=== PATIENT | male | born 1950 | race Caucasian/White ===

== ENCOUNTER 2017-05-02 10:02 | Inpatient (IN) | payer MEDICARE, OTHER ==
[~2017-05-02] VITALS: Ht 177.8 cm; Wt 100.1 kg
[2017-05-02 10:20] VITALS: BP 120/56; PULSE 104; RESP 16; TEMP 99.6; O2SAT 98
[2017-05-02 11:08] VITALS: BP 136/60; PULSE 116; RESP 20; O2SAT 97
[2017-05-02] MEDS ORDERED: SODIUM CHLOR 0.9% 1000 ML INJ 1,000 ML IV ONE (11:14)
[2017-05-02] MEDS ORDERED: ONDANSETRON HCL 4 MG/2 ML VIAL IV PUSH ONE (11:15)
[2017-05-02] MEDS ORDERED: LOPERAMIDE HCL 2 MG CAP PO ONE ×2 (11:15→11:30)
--- NOTE | 2017-05-02 11:20 | PD ---
HPI Chief Complaint: GI Complaint Time Seen by Provider: 11:00 Travel History International Travel<30 days: No Contact w/Intl Traveler<30days: No Traveled to known affect area: No History of Present Illness HPI 66-year-old male with history of diabetes, hyperlipidemia, hypertension presents emergency department with concerns of nausea, vomiting and diarrhea for approximately 5 days. States that he went to urgent care this morning and they tested him for the flu which was negative. Advised that he come to the emergency department today for further evaluation. Says that his was sick with very similar symptoms approximately 10 days ago and believes this is the cause of his symptoms now. Says he has had 2-3 loose stools per day. States the stool has had an unusual odor. In addition says that he has had some muscle cramping. Denies fever, chills, chest pain, shortness of breath, abdominal pain. Denies melena, hematochezia, hematemesis. His friend says that patient has been "disoriented", very similar to what his experienced since the onset of his symptoms. 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 Denies recent antibiotic use, patient denies history of heart attacks, congestive heart failure, or chronic pulmonary diseases. PFSH Past Medical History Diabetes: Yes Patient Takes Glucophage: Yes Diminished Hearing: No Hypertension: Yes Past Surgical History Other Surgery: Yes (L and R knee ) Social History Alcohol Use: No Tobacco Use: No Substance Use: No Allergies-Medications (Allergen,Severity, Reaction): Coded Allergies: No Known Allergies (Unverified , 05/02/17) Reported Meds & Prescriptions Reported Meds & Active Scripts Active Reported Terazosin (Terazosin HCl) 5 Mg Cap 5 Mg PO HS Hydrochlorothiazide 25 Mg Tab 25 Mg PO DAILY Lisinopril 20 Mg Tab 20 Mg PO DAILY Amlodipine (Amlodipine Besylate) 10 Mg Tab 10 Mg PO DAILY Glimepiride 4 Mg Tab 4 Mg PO BIDAC Januvia (Sitagliptin Phosphate) 100 Mg Tab 100 Mg PO DAILY Review of Systems Except as stated in HPI: all other systems reviewed are Neg Physical Exam Narrative GENERAL: Well-developed, well-nourished no apparent distress SKIN: Focused skin assessment warm/dry. HEAD: Atraumatic. Normocephalic. EYES: Pupils equal and round. No scleral icterus. No injection or drainage. ENT: No nasal bleeding or discharge. Mucous membranes pink and moist. NECK: Trachea midline. No JVD. No lymphadenopathy CARDIOVASCULAR: Regular rate and rhythm. No murmur appreciated. RESPIRATORY: No accessory muscle use. Clear to auscultation. Breath sounds equal bilaterally. GASTROINTESTINAL: Abdomen soft, non-tender, nondistended. Normoactive bowel sounds MUSCULOSKELETAL: No obvious deformities. No clubbing. No cyanosis. No edema. NEUROLOGICAL: Awake and alert. No obvious cranial nerve deficits. Motor grossly within normal limits. Normal speech. PSYCHIATRIC: Appropriate mood and affect; insight and judgment normal. Data Data Last Documented VS Vital Signs Date Time Temp Pulse Resp B/P (MAP) Pulse Ox O2 Delivery O2 Flow Rate FiO2 05/02/17 11:08 116 20 136/60 (85) 97 Room Air 05/02/17 10:20 99.6 Orders Orders Complete Blood Count With Diff (05/02/17 11:14) Comprehensive Metabolic Panel (05/02/17 11:14) Lipase (05/02/17 11:14) Ondansetron Inj (Zofran Inj) (05/02/17 11:15) Sodium Chlor 0.9% 1000 Ml Inj (Ns 1000 M (05/02/17 11:14) Magnesium (Mg) (05/02/17 11:14) Loperamide (Imodium) (05/02/17 11:15) Influenzae A/B Antigen (05/02/17 11:18) Loperamide (Imodium) (05/02/17 11:30) Diet Heart Healthy (05/02/17 Lunch) Vital Signs (Adult) ADAIR.Q4H (05/02/17 12:49) Complete Blood Count With Diff (05/03/17 06:00) Comprehensive Metabolic Panel (05/03/17 06:00) ^ Other Nursing Orders (05/02/17 12:49) Admit Order (Ed Use Only) (05/02/17 12:50) Labs Laboratory Tests Test 05/02/17 11:15 White Blood Count 18.1 TH/MM3 Red Blood Count 4.09 MIL/MM3 Hemoglobin 13.0 GM/DL Hematocrit 37.2 % Mean Corpuscular Volume 91.0 FL Mean Corpuscular Hemoglobin 31.9 PG Mean Corpuscular Hemoglobin Concent 35.0 % Red Cell Distribution Width 13.8 % Platelet Count 279 TH/MM3 Mean Platelet Volume 7.2 FL Neutrophils (%) (Auto) 85.3 % Lymphocytes (%) (Auto) 3.6 % Monocytes (%) (Auto) 11.0 % Eosinophils (%) (Auto) 0.0 % Basophils (%) (Auto) 0.1 % Neutrophils # (Auto) 15.4 TH/MM3 Lymphocytes # (Auto) 0.7 TH/MM3 Monocytes # (Auto) 2.0 TH/MM3 Eosinophils # (Auto) 0.0 TH/MM3 Basophils # (Auto) 0.0 TH/MM3 CBC Comment DIFF FINAL Differential Comment Blood Urea Nitrogen 26 MG/DL Creatinine 1.16 MG/DL Random Glucose 31 MG/DL Total Protein 7.0 GM/DL Albumin 3.4 GM/DL Calcium Level 7.8 MG/DL Magnesium Level 2.0 MG/DL Alkaline Phosphatase 145 U/L Aspartate Amino Transf (AST/SGOT) 73 U/L Alanine Aminotransferase (ALT/SGPT) 97 U/L Total Bilirubin 0.8 MG/DL Sodium Level 132 MEQ/L Potassium Level 3.9 MEQ/L Chloride Level 101 MEQ/L Carbon Dioxide Level 20.9 MEQ/L Anion Gap 10 MEQ/L Estimat Glomerular Filtration Rate 63 ML/MIN Lipase 1005 U/L MDM Medical Decision Making Medical Screen Exam Complete: Yes Emergency Medical Condition: Yes Differential Diagnosis gastroenteritis, hypoglycemia, medication noncompliance, pancreatitis, influenza , viral syndrome Narrative Course 66-year-old male with history of diabetes, hyperlipidemia, hypertension presents emergency department with concerns of nausea, vomiting and diarrhea for approximately 5 days. States that he went to urgent care this morning and they tested him for the flu which was negative. Advised that he come to the emergency department today for further evaluation. Says that his was sick with very similar symptoms approximately 10 days ago and believes this is the cause of his symptoms now. Says he has had 2-3 loose stools per day. States the stool has had an unusual odor. In addition says that he has had some muscle cramping. Denies fever, chills, chest pain, shortness of breath, abdominal pain. Denies melena, hematochezia, hematemesis. His friend says that patient has been "disoriented", very similar to what his experienced since the onset of his symptoms. 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 Denies recent antibiotic use, patient denies history of heart attacks, congestive heart failure, or chronic pulmonary diseases. Vital signs stable. BGL 37 upon arrival. Recheck after corina quinton 54. Labs and imaging studies ordered. Labs are significant for WBC 18.1, likely secondary to nausea with vomiting and diarrhea. Blood glucose 31 prior to treatment, see the above note. BUN/creatinine 26/1.16 Pt says he took his medications this morning which includes glimepiride. There is a concern for hypoglycemia as a result of the medication. In addition, pt is visiting for bike week and does not have all of his materials for checking blood sugar. There is a concern for persistent hypoglycemia in combination with his gastroenteritis symptoms. @1248 BLG 41 after sandwich, fruit cup, corina quinton, gatorade. Will continue to encourage PO intake. I discussed this with my attending physician who suggested pt stay for observation. I discussed this with the patient and he agrees to stay. Spoke with Dr. Lloyd who accepted this patient for observation. @1511 I walked into the room and his friend was concerned that he has some left- sided weakness for about 45 minutes. Patient states that he is unable to lift his arm and has weakness in the lower left lower extremity. In addition, patient is unable to puff his cheeks or keep his left eye closed tightly. His exam shows that patient has urine on his jeans however, states that this was secondary to him trying to urinate in the urinal and was unsuccessful. Blood glucose 45. Friend says that he has been continually eating and drinking that his blood sugar has remained low. Order D50 for administration and monitoring. Will recheck blood sugar. D50 resolved all symptoms. A call was placed to Dr. Allen regarding this episode. Diagnosis Primary Impression: Gastroenteritis Additional Impressions: Hypoglycemia associated with type 2 diabetes mellitus Side effect of medication Admitting Information Admitting Physician Requests: Observation Referrals: Primary Care Physician Condition: Stable Veronica Schaeffer May 02, 2017 11:20
[2017-05-02 11:32] LABS: AUTOMATED NEUTROPHIL # 15.4 TH/MM3 (1.8-7.7); BASOPHIL % 0.1 % (0.0-2.0); HEMATOCRIT 37.2 % (39.0-51.0); LYMPH % 3.6 % (9.0-44.0); LYMPHOCYTE # 0.7 TH/MM3 (1.0-4.8); MEAN CORPUSCULAR HEMOGLOBIN 31.9 PG (27.0-34.0); MEAN PLATELET VOLUME 7.2 FL (7.0-11.0); NEUT % 85.3 % (16.0-70.0); PLATELET COUNT 279 TH/MM3 (150-450); RED BLOOD COUNT 4.09 MIL/MM3 (4.50-5.90); RED CELL DISTRIBUTION WIDTH 13.8 % (11.6-17.2); WHITE BLOOD COUNT 18.1 TH/MM3 (4.0-11.0)
[2017-05-02] MEDS ORDERED: HYDR25TA5 PO (11:35)
[2017-05-02] MEDS ORDERED: SITA1TAB2 PO (11:35)
[2017-05-02] MEDS ORDERED: AMLO10TA2 PO (11:35)
[2017-05-02] MEDS ORDERED: LISI-515 PO (11:35)
[2017-05-02] MEDS ORDERED: GLIM4TAB PO (11:35)
[2017-05-02] MEDS ORDERED: TERA5CAP3 PO (11:35)
[2017-05-02 12:04] LABS: ALBUMIN 3.4 GM/DL (3.4-5.0); ALKALINE PHOSPHATASE 145 U/L (45-117); ALT (GPT) 97 U/L (12-78); AST (GOT) 73 U/L (15-37); BICARBONATE 20.9 MEQ/L (21.0-32.0); BLOOD UREA NITROGEN 26 MG/DL (7-18); CALCIUM 7.8 MG/DL (8.5-10.1); CHLORIDE 101 MEQ/L (98-107); CREATININE 1.16 MG/DL (0.60-1.30); GLOMERULAR FILTRATION RATE 63 ML/MIN (>89); SODIUM (NA) 132 MEQ/L (136-145); TOTAL BILIRUBIN ADULT 0.8 MG/DL (0.2-1.0)
[2017-05-02 12:10] LABS: GLUCOSE,RANDOM 31 MG/DL (74-106)
--- NOTE | 2017-05-02 12:20 | PD ---
Data Data Last Documented VS Vital Signs Date Time Temp Pulse Resp B/P (MAP) Pulse Ox O2 Delivery O2 Flow Rate FiO2 05/02/17 11:08 116 20 136/60 (85) 97 Room Air 05/02/17 10:20 99.6 Orders Orders Complete Blood Count With Diff (05/02/17 11:14) Comprehensive Metabolic Panel (05/02/17 11:14) Lipase (05/02/17 11:14) Ondansetron Inj (Zofran Inj) (05/02/17 11:15) Sodium Chlor 0.9% 1000 Ml Inj (Ns 1000 M (05/02/17 11:14) Magnesium (Mg) (05/02/17 11:14) Loperamide (Imodium) (05/02/17 11:15) Influenzae A/B Antigen (05/02/17 11:18) Loperamide (Imodium) (05/02/17 11:30) Labs Laboratory Tests Test 05/02/17 11:15 White Blood Count 18.1 TH/MM3 Red Blood Count 4.09 MIL/MM3 Hemoglobin 13.0 GM/DL Hematocrit 37.2 % Mean Corpuscular Volume 91.0 FL Mean Corpuscular Hemoglobin 31.9 PG Mean Corpuscular Hemoglobin Concent 35.0 % Red Cell Distribution Width 13.8 % Platelet Count 279 TH/MM3 Mean Platelet Volume 7.2 FL Neutrophils (%) (Auto) 85.3 % Lymphocytes (%) (Auto) 3.6 % Monocytes (%) (Auto) 11.0 % Eosinophils (%) (Auto) 0.0 % Basophils (%) (Auto) 0.1 % Neutrophils # (Auto) 15.4 TH/MM3 Lymphocytes # (Auto) 0.7 TH/MM3 Monocytes # (Auto) 2.0 TH/MM3 Eosinophils # (Auto) 0.0 TH/MM3 Basophils # (Auto) 0.0 TH/MM3 CBC Comment DIFF FINAL Differential Comment Blood Urea Nitrogen 26 MG/DL Creatinine 1.16 MG/DL Random Glucose 31 MG/DL Total Protein 7.0 GM/DL Albumin 3.4 GM/DL Calcium Level 7.8 MG/DL Magnesium Level 2.0 MG/DL Alkaline Phosphatase 145 U/L Aspartate Amino Transf (AST/SGOT) 73 U/L Alanine Aminotransferase (ALT/SGPT) 97 U/L Total Bilirubin 0.8 MG/DL Sodium Level 132 MEQ/L Potassium Level 3.9 MEQ/L Chloride Level 101 MEQ/L Carbon Dioxide Level 20.9 MEQ/L Anion Gap 10 MEQ/L Estimat Glomerular Filtration Rate 63 ML/MIN Lipase 1005 U/L MDM Supervised Visit with KEN: Yes Narrative Course The history, exam, and medical decision-making in the associated mid-level provider note were completed with my assistance. I reviewed and agree with the findings presented. I attest that I had a [id number] encounter with the patient on the same day, and personally performed and documented my assessment and findings in the medical record. *My assessment and Findings: 66-year-old man, presents to the ED with nausea vomiting diarrhea lightheadedness and weakness. Found to have low blood sugar. Takes Januvia as well as also follow urea. 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 Not been eating much either despite taking his medication. Blood sugar remains low in the ED. Given the risk for recurrent hypoglycemia in the setting of sulfonylurea use, would recommend observation. [place], does not have his strips for his monitor. Diagnosis Primary Impression: Gastroenteritis Additional Impressions: Hypoglycemia Renal insufficiency Admitting Information Admitting Physician Requests: Observation Referrals: Primary Care Physician Condition: Stable Delta Wolff MD May 02, 2017 12:20
[2017-05-02] MEDS ORDERED: DEXT 5%-NACL 0.9% 1000 ML INJ 1,000 ML IV SCH (14:00)
--- NOTE | 2017-05-02 14:07 | HHI.HP ---
[facility] Non-Staff Admission Diagnosis hypogylcemia, side effect of medication Diagnoses: (1) Hypoglycemia associated with type 2 diabetes mellitus Diagnosis: Principal Chief Complaint: ' I got confused'. Travel History International Travel<30 Days: No Contact w/Intl Traveler <30 Da: No Traveled to Known Affected Are: No History of Present Illness patient is a 66 y/o male with history of diabetes mellitus, hypertension who presented to ER after he got confused earlier today. he says that he's had some diarrhea over the past two days but with no abdominal pain, nausea,fever or chills. he says that he had his glucometer but didn't have test strips and couldn't check his blood sugar. he was just started on his new regimen of oral hypoglycemics two months ago; he uses to take metformin in the past. apparently he was confused earlier today -he was found to have a blood sugar of 31 at the time of presentation. he was awake and fully oriented at the time of my evaluation. Review of Systems Constitutional: DENIES: Fever, Weight loss, Chills, Night Sweats Eyes: DENIES: Blurred vision, Diplopia, Vision loss, Double Vision Ears, nose, mouth, throat: DENIES: Tinnitus, Vertigo, Throat pain, Epistaxis Respiratory: DENIES: Apneas, Cough, Snoring, Wheezing, Hemoptysis, Sputum production, Shortness of breath Cardiovascular: DENIES: Chest pain, Palpitations, Syncope, Dyspnea on Exertion , PND, Lower Extremity Edema, Orthopnea, Claudication Gastrointestinal: COMPLAINS OF: Diarrhea, DENIES: Abdominal pain, Black stools , Bloody stools, Constipation, Nausea, Vomiting, Difficulty Swallowing, Anorexia Genitourinary: DENIES: Urinary frequency, Urgency, Hematuria, Dysuria Musculoskeletal: DENIES: Joint pain, Muscle aches, Stiffness, Joint Swelling Integumentary: DENIES: Rash Neurologic: DENIES: Abnormal gait, Headache, Localized weakness, Paresthesias, Seizures, Speech Problems, Tremor, Poor Balance Psychiatric: COMPLAINS OF: Confusion, DENIES: Anxiety, Mood changes, Depression , Hallucinations, Agitation, Suicidal Ideation, Homicidal Ideation, Delusions Past Family Social History Past Medical History diabetes mellitus/ hypertension. Past Surgical History knee arthroscopy. Reported Medications Terazosin (Terazosin HCl) 5 Mg Cap 5 Mg PO HS Hydrochlorothiazide 25 Mg Tab 25 Mg PO DAILY Lisinopril 20 Mg Tab 20 Mg PO DAILY Amlodipine (Amlodipine Besylate) 10 Mg Tab 10 Mg PO DAILY Glimepiride 4 Mg Tab 4 Mg PO BIDAC Januvia (Sitagliptin Phosphate) 100 Mg Tab 100 Mg PO DAILY Allergies: Coded Allergies: No Known Allergies (Unverified , 05/02/17) Active Ordered Medications Inpatient Medications Loperamide HCl (Imodium) 4 mg ONCE ONCE PO Last administered on 05/02/17at 11: 35; Start 05/02/17 at 11:30; Stop 05/02/17 at 11:31; Status DC Ondansetron HCl (Zofran Inj) 4 mg ONCE ONCE IV PUSH Last administered on at 11:36; Start 05/02/17 at 11:15; Stop 05/02/17 at 11:16; Status DC Sodium Chloride 1,000 ml @ 1,000 mls/hr Q1H ONCE IV Last administered on at 11:36; Start 05/02/17 at 11:14; Stop 05/02/17 at 12:13; Status DC Social History no smoking or drinking. Physical Exam Vital Signs Vital Signs Date Time Temp Pulse Resp B/P (MAP) Pulse Ox O2 Delivery O2 Flow Rate FiO2 05/02/17 11:08 116 20 136/60 (85) 97 Room Air 05/02/17 10:20 99.6 104 16 120/56 (77) 98 Physical Exam GENERAL: This is a well-nourished, well-developed patient, in no apparent distress. SKIN: No rashes, ecchymoses or lesions. Cool and dry. HEAD: Atraumatic. Normocephalic. No temporal or scalp tenderness. EYES: Pupils equal round and reactive. Extraocular motions intact. No scleral icterus. No injection or drainage. ENT: Nose without bleeding, purulent drainage or septal hematoma. Throat without erythema, tonsillar hypertrophy or exudate. Uvula midline. Airway patent. NECK: Trachea midline. No JVD or lymphadenopathy. Supple, nontender, no meningeal signs. CARDIOVASCULAR: Regular rate and rhythm without murmurs, gallops, or rubs. RESPIRATORY: Clear to auscultation. Breath sounds equal bilaterally. No wheezes , rales, or rhonchi. GASTROINTESTINAL: Abdomen soft, non-tender, nondistended. No hepato-splenomegaly , or palpable masses. No guarding. MUSCULOSKELETAL: Extremities without clubbing, cyanosis, or edema. No joint tenderness, effusion, or edema noted. No calf tenderness. Negative Homans sign bilaterally. NEUROLOGICAL: Awake and alert. Cranial nerves II through XII intact. Motor and sensory grossly within normal limits. Five out of 5 muscle strength in all muscle groups. Normal speech. Laboratory Laboratory Tests Test 05/02/17 11:15 White Blood Count 18.1 Red Blood Count 4.09 Hemoglobin 13.0 Hematocrit 37.2 Mean Corpuscular Volume 91.0 Mean Corpuscular Hemoglobin 31.9 Mean Corpuscular Hemoglobin Concent 35.0 Red Cell Distribution Width 13.8 Platelet Count 279 Mean Platelet Volume 7.2 Neutrophils (%) (Auto) 85.3 Lymphocytes (%) (Auto) 3.6 Monocytes (%) (Auto) 11.0 Eosinophils (%) (Auto) 0.0 Basophils (%) (Auto) 0.1 Neutrophils # (Auto) 15.4 Lymphocytes # (Auto) 0.7 Monocytes # (Auto) 2.0 Eosinophils # (Auto) 0.0 Basophils # (Auto) 0.0 CBC Comment DIFF FINAL Differential Comment Blood Urea Nitrogen 26 Creatinine 1.16 Random Glucose 31 Total Protein 7.0 Albumin 3.4 Calcium Level 7.8 Magnesium Level 2.0 Alkaline Phosphatase 145 Aspartate Amino Transf (AST/SGOT) 73 Alanine Aminotransferase (ALT/SGPT) 97 Total Bilirubin 0.8 Sodium Level 132 Potassium Level 3.9 Chloride Level 101 Carbon Dioxide Level 20.9 Anion Gap 10 Estimat Glomerular Filtration Rate 63 Lipase 1005 Date/Time Source Procedure Growth Status 05/02/17 11:30 Nasal Aspirate Influenza Types A,B Antigen (JORJE) - Final NEGATIVE FOR FLU A AND B ANTIGEN.... Complete Result Diagram: 05/02/17 1115 05/02/17 1115 Caprini VTE Risk Assessment Caprini VTE Risk Assessment: Mod/High Risk (score >= 2) Caprini Risk Assessment Model Point Value = 1 Point Value = 2 Point Value = 3 Point Value = 5 Age 41-60 Minor surgery BMI > 25 kg/m2 Swollen legs Varicose veins or History of unexplained or recurrent spontaneous Oral contraceptives or hormone replacement Sepsis (< 1 month) Serious lung disease, including pneumonia (< 1 month) Abnormal pulmonary function Acute myocardial infarction Congestive heart failure (< 1 month) History of inflammatory bowel disease Medical patient at bed rest Age 61-74 Arthroscopic surgery Major open surgery (> 45 min) Laparoscopic surgery (> 45 min) Malignancy Confined to bed (> 72 hours) Immobilizing plaster cast Central venous access Age >= 75 History of VTE Family history of VTE Factor V Leiden Prothrombin [id number] Lupus anticoagulant Anticardiolipin antibodies Elevated serum homocysteine Heparin-induced thrombocytopenia Other congenital or acquired thrombophilia Stroke (< 1 month) Elective arthroplasty Hip, pelvis, or leg fracture Acute spinal cord injury (< 1 month) Prophylaxis Regimen Total Risk Factor Score Risk Level Prophylaxis Regimen 0-1 Low Early ambulation 2 Moderate Order ONE of the following: *Sequential Compression Device (SCD) *Heparin 5000 units SQ BID 3-4 Higher Order ONE of the following medications: *Heparin 5000 units SQ TID *Enoxaparin/Lovenox 40 mg SQ daily (WT < 150 kg, CrCl > 30 mL/min) *Enoxaparin/Lovenox 30 mg SQ daily (WT < 150 kg, CrCl > 10-29 mL/min) *Enoxaparin/Lovenox 30 mg SQ BID (WT < 150 kg, CrCl > 30 mL/min) AND/OR *Sequential Compression Device (SCD) 5 or more Highest Order ONE of the following medications: *Heparin 5000 units SQ TID (Preferred with Epidurals) *Enoxaparin/Lovenox 40 mg SQ daily (WT < 150 kg, CrCl > 30 mL/min) *Enoxaparin/Lovenox 30 mg SQ daily (WT < 150 kg, CrCl > 10-29 mL/min) *Enoxaparin/Lovenox 30 mg SQ BID (WT < 150 kg, CrCl > 30 mL/min) AND *Sequential Compression Device (SCD) Assessment and Plan Assessment and Plan A/P - acute encephalopathy due to hypoglycemia; now mental status has improved. start on D5NS and continue with close monitoring of blood sugar. hold oral hypoglycemics. -hypertension; resume home meds -leukocytosis- possibly reactive; will repeat CBC tomorrow. -elevated LFT's- will monitor; repeat the levels tomorrow. -elevated lipase; patient with no abdominal pain- clinically no evidence of pancreatitis- recheck lipase tomorrow. -DVT prophylaxis with subq Lovenox Discussed Condition With ER, the patient and RN. Shirin Melendez MD May 02, 2017 14:07
[2017-05-02] MEDS ORDERED: DEXTROSE 50% IN WATER 50 ML VIAL(D50) IV PUSH ONE (15:15)
--- NOTE | 2017-05-02 16:22 | RADRPT ---
EXAM DATE/TIME: 05/02/2017 16:00 [place] COMPARISON: No previous studies available for comparison. INDICATIONS : Weakness with low blood sugar level. RADIATION DOSE: 56.35 CTDIvol (mGy) MEDICAL HISTORY : Diabetes mellitus type 2. Hypertension. SURGICAL HISTORY : None. ENCOUNTER: Initial ACUITY: 1 day PAIN SCALE: 2/10 LOCATION: Bilateral cranial TECHNIQUE: Multiple contiguous axial images were obtained of the head. Using automated exposure control and adj ustment of the mA and/or kV according to patient size, radiation dose was kept as low as reasonably a chievable to obtain optimal diagnostic quality images. DICOM format image data is available electro nically for review and comparison. FINDINGS: CEREBRUM: The ventricles are normal for age. No evidence of midline shift, mass lesion, hemorrhage or acute in farction. No extra-axial fluid collections are seen. POSTERIOR FOSSA: The cerebellum and brainstem are intact. The 4th ventricle is midline. The cerebellopontine angle i s unremarkable. EXTRACRANIAL: The visualized portion of the orbits is intact. Small amount fluid in the left maxillary sinus. SKULL: The calvaria is intact. No evidence of skull fracture. CONCLUSION: 1. No acute intracranial abnormality. 2. Left maxillary sinus fluid which may reflect sinusitis. Rayo Wahl MD on May 02, 2017 at 16:19 Board Certified Radiologist. This report was verified electronically.
[2017-05-02 16:36] VITALS: BP 140/67; PULSE 115; RESP 17; O2SAT 95
[2017-05-02 19:30] VITALS: BP 136/85; PULSE 89; RESP 16; O2SAT 99
[2017-05-02] MEDS ORDERED: SODIUM CHLORIDE 23.4% INJ 77 MEQ in DEXTROSE 10% INJ 1,000 ML IV SCH (21:00)
[2017-05-02] MEDS: TERAZOSIN HCL 5 MG CAP PO SCH (21:21)
[2017-05-02] MEDS ORDERED: ONDANSETRON HCL 4 MG/2 ML VIAL IV PUSH PRN (22:00)
[2017-05-02 22:50] VITALS: PULSE 105
[2017-05-02 22:56] VITALS: BP 92/51; PULSE 102; RESP 16; TEMP 98.5; O2SAT 94
[2017-05-03] VITALS (30 sets, daily range): BP systolic 94–120; BP diastolic 50–63; PULSE 95–130; RESP 16–18; TEMP 98.6–100; O2SAT 93–96
[2017-05-03 07:31] LABS: AUTOMATED NEUTROPHIL # 9.7 TH/MM3 (1.8-7.7); BASOPHIL % 0.4 % (0.0-2.0); EOSINOPHIL # 0.1 TH/MM3 (0-0.4); EOSINOPHIL % 0.8 % (0.0-4.0); HEMATOCRIT 32.8 % (39.0-51.0); HEMOGLOBIN 11.1 GM/DL (13.0-17.0); LYMPH % 5.8 % (9.0-44.0); LYMPHOCYTE # 0.7 TH/MM3 (1.0-4.8); MEAN CELL VOLUME 89.8 FL (80.0-100.0); MEAN CORPUSCULAR HEMOGLOBIN 30.5 PG (27.0-34.0); MEAN PLATELET VOLUME 7.6 FL (7.0-11.0); MONO % 13.5 % (0.0-8.0); MONOCYTE # 1.6 TH/MM3 (0-0.9); NEUT % 79.5 % (16.0-70.0); PLATELET COUNT 232 TH/MM3 (150-450); RED BLOOD COUNT 3.65 MIL/MM3 (4.50-5.90); RED CELL DISTRIBUTION WIDTH 13.5 % (11.6-17.2); WHITE BLOOD COUNT 12.2 TH/MM3 (4.0-11.0)
[2017-05-03 07:56] LABS: ALBUMIN 2.7 GM/DL (3.4-5.0); BICARBONATE 22.9 MEQ/L (21.0-32.0); CALCIUM 7.2 MG/DL (8.5-10.1); CALCIUM-PROTEIN CORRECTED 7.9 MG/DL (8.5-10.1); CREATININE 1.31 MG/DL (0.60-1.30); TOTAL BILIRUBIN ADULT 0.4 MG/DL (0.2-1.0); TOTAL PROTEIN 5.8 GM/DL (6.4-8.2)
[2017-05-03] MEDS: metroNIDAZOLE 500 MG TAB PO SCH ×3 (08:16→23:36)
[2017-05-03] MEDS: LISINOPRIL 20 MG TAB PO SCH (08:17)
[2017-05-03] MEDS: HYDROCHLOROTHIAZIDE 25 MG TAB PO SCH (08:17)
--- NOTE | 2017-05-03 08:30 | HHI.PR ---
Subjective Remarks This is a pleasant 66 y/o male with DM II, Hypertension, brought in to ER with AMS, found with Hypoglycemia Seen in his bedroom, he had some low grade fever, found with C Diff positive, started on Flagyl by mouth every 8 hours, Hypokalemia in 3.4 replaced and following, his Leukocytosis is coming down from 36.2 to 26.8 Hemoglobin 8.9 from 9.3 probable dilutional. no nausea, vomit or diarrhea. Objective Vital Signs Date Time Temp Pulse Resp B/P (MAP) Pulse Ox O2 Delivery O2 Flow Rate FiO2 05/03/17 06:05 109 05/03/17 05:07 129 05/03/17 04:02 104 05/03/17 03:09 113 05/03/17 02:54 130 05/03/17 02:09 112 05/03/17 02:05 98.6 100 94/50 (65) 93 05/03/17 01:07 99 05/03/17 00:47 98.6 101 16 100/56 (71) 95 05/03/17 00:01 97 05/02/17 22:56 98.5 102 16 92/51 (65) 94 05/02/17 22:50 105 05/02/17 21:56 05/02/17 19:30 89 16 136/85 (102) 99 Room Air 05/02/17 16:36 115 17 140/67 (91) 95 Room Air 05/02/17 11:08 116 20 136/60 (85) 97 Room Air 05/02/17 10:20 99.6 104 16 120/56 (77) 98 I/O 05/02/17 05/02/17 05/02/17 05/03/17 05/03/17 05/03/17 06:59 14:59 22:59 06:59 14:59 22:59 Intake Total 1000 ml 360 ml Output Total 200 ml Balance 1000 ml 160 ml Intake Oral 360 ml IV Total 1000 ml Output Urine Total 200 ml # Voids 1 1 # Bowel Movements 1 Result Diagram: 05/03/17 0506 05/03/17 0506 Imaging Last Impressions Head CT 05/02/17 0000 Signed Impressions: Service Date/Time: Tuesday, May 02, 2017 16:00 - CONCLUSION: 1. No acute intracranial abnormality. 2. Left maxillary sinus fluid which may reflect sinusitis. Rayo Wahl MD Procedures None Other Results Laboratory Tests Test 05/02/17 11:15 05/03/17 03:04 05/03/17 05:06 Blood Urea Nitrogen 26 MG/DL 27 MG/DL Creatinine 1.16 MG/DL 1.31 MG/DL Random Glucose 31 MG/DL 113 MG/DL Total Protein 7.0 GM/DL 5.8 GM/DL Albumin 3.4 GM/DL 2.7 GM/DL Calcium Level 7.8 MG/DL 7.2 MG/DL Magnesium Level 2.0 MG/DL Alkaline Phosphatase 145 U/L 92 U/L Aspartate Amino Transf (AST/SGOT) 73 U/L 27 U/L Alanine Aminotransferase (ALT/SGPT) 97 U/L 59 U/L Total Bilirubin 0.8 MG/DL 0.4 MG/DL Sodium Level 132 MEQ/L 134 MEQ/L Potassium Level 3.9 MEQ/L 3.6 MEQ/L Chloride Level 101 MEQ/L 101 MEQ/L Carbon Dioxide Level 20.9 MEQ/L 22.9 MEQ/L Stool C. difficile Toxin (PCR) POSITIVE Stl C. difficile Toxin Epiderm 027 PRESUMPTIVE NEGATIVE White Blood Count 12.2 TH/MM3 Red Blood Count 3.65 MIL/MM3 Hemoglobin 11.1 GM/DL Hematocrit 32.8 % Mean Corpuscular Volume 89.8 FL Mean Corpuscular Hemoglobin 30.5 PG Mean Corpuscular Hemoglobin Concent 34.0 % Red Cell Distribution Width 13.5 % Platelet Count 232 TH/MM3 Mean Platelet Volume 7.6 FL Neutrophils (%) (Auto) 79.5 % Lymphocytes (%) (Auto) 5.8 % Monocytes (%) (Auto) 13.5 % Eosinophils (%) (Auto) 0.8 % Basophils (%) (Auto) 0.4 % Neutrophils # (Auto) 9.7 TH/MM3 Lymphocytes # (Auto) 0.7 TH/MM3 Monocytes # (Auto) 1.6 TH/MM3 Eosinophils # (Auto) 0.1 TH/MM3 Basophils # (Auto) 0.0 TH/MM3 CBC Comment DIFF FINAL Differential Comment Anion Gap 10 MEQ/L Estimat Glomerular Filtration Rate 55 ML/MIN Protein Corrected Calcium 7.9 MG/DL Lipase 398 U/L Objective Remarks GENERAL: Obese patient in no acute distress. SKIN: No rashes, ecchymoses or lesions. Cool and dry. HEAD: Atraumatic. Normocephalic. No temporal or scalp tenderness. EYES: Pupils equal round and reactive. Extraocular motions intact. ENT: Nose without bleeding, purulent drainage or septal hematoma. NECK: Trachea midline. No JVD or lymphadenopathy. Supple, nontender, no meningeal signs. CARDIOVASCULAR: Regular rate and rhythm without murmurs, gallops, or rubs. RESPIRATORY: Clear to auscultation. Breath sounds equal bilateral. GASTROINTESTINAL: Abdomen soft, non-tender, nondistended. MUSCULOSKELETAL: Extremities without clubbing, cyanosis, or edema. NEUROLOGICAL: Awake and alert. Cranial nerves II through XII intact. Medications and IVs Current Medications Medications (Trade) Dose Ordered Sig/Hubert Route Start Time Stop Time Status Last Admin (Norvasc) 10 mg DAILY PO 05/03/17 09:00 05/03/17 08:16 (Hydrodiuril) 25 mg DAILY PO 05/03/17 09:00 05/03/17 08:17 (Prinivil) 20 mg DAILY PO 05/03/17 09:00 05/03/17 08:17 (Hytrin) 5 mg HS PO 05/02/17 21:00 05/02/17 21:21 (Zofran Inj) 4 mg Q8HR PRN IV PUSH 05/02/17 22:00 Sodium Chloride 77 meq/Dextrose 1,019.25 ml @ 100 mls/ hr [id number] IV 05/02/17 21:00 05/02/17 21:21 (Flagyl) 500 mg Q8H PO 05/03/17 08:00 05/03/17 08:16 A/P Assessment and Plan - acute encephalopathy due to hypoglycemia; now mental status has improved. continue on hold oral hypoglycemic medicine, continue D5 in normal saline due to hyponatremia. -hypertension; mild hypotension will hold Amlodipine by now. -leukocytosis- trending down to 26.8 from 36.2 probable related to C Diff Colitis on Flagyl by mouth -elevated LFT's- will monitor; Improved. -elevated lipase; patient with no abdominal pain- clinically no evidence of pancreatitis- Improving. -Obesity strongly recommended diet and exercise. -DVT prophylaxis with subq Lovenox Discussed Condition With patient and relative in the room, follow laboratory in am tomorrow. Discharge Planning Expected in one to two days. Kai Thomas MD May 03, 2017 08:30
[2017-05-03] MEDS ORDERED: POTASSIUM CHLORIDE 20 MEQ CONTROLLED RELEASE TAB PO ONE (08:45)
[2017-05-03] MEDS: DEXT 5%-NACL 0.9% 1000 ML INJ 1,000 ML IV SCH ×2 (10:14→21:14)
[2017-05-03] MEDS: TERAZOSIN HCL 5 MG CAP PO SCH (20:47)
[2017-05-04] VITALS (10 sets, daily range): BP systolic 119–138; BP diastolic 71–76; PULSE 93–107; RESP 16–18; TEMP 98.1–99.2; O2SAT 94–97
[2017-05-04 06:20] LABS: BASOPHIL # 0.1 TH/MM3 (0-0.2); BASOPHIL % 0.5 % (0.0-2.0); EOSINOPHIL # 0.2 TH/MM3 (0-0.4); EOSINOPHIL % 1.8 % (0.0-4.0); HEMATOCRIT 32.5 % (39.0-51.0); HEMOGLOBIN 11.2 GM/DL (13.0-17.0); LYMPH % 9.2 % (9.0-44.0); LYMPHOCYTE # 0.9 TH/MM3 (1.0-4.8); MEAN CELL VOLUME 89.5 FL (80.0-100.0); MEAN CORPUSCULAR HEMOGLOBIN 30.8 PG (27.0-34.0); MEAN CORPUSCULAR HGB CONC 34.4 % (32.0-36.0); MEAN PLATELET VOLUME 7.2 FL (7.0-11.0); MONO % 9.9 % (0.0-8.0); NEUT % 78.6 % (16.0-70.0); PLATELET COUNT 251 TH/MM3 (150-450); RED BLOOD COUNT 3.64 MIL/MM3 (4.50-5.90); RED CELL DISTRIBUTION WIDTH 13.7 % (11.6-17.2); WHITE BLOOD COUNT 10.1 TH/MM3 (4.0-11.0)
[2017-05-04 06:45] LABS: ALBUMIN 2.6 GM/DL (3.4-5.0); ALT (GPT) 59 U/L (12-78); AST (GOT) 26 U/L (15-37); BICARBONATE 21.5 MEQ/L (21.0-32.0); BLOOD UREA NITROGEN 21 MG/DL (7-18); CALCIUM 7.6 MG/DL (8.5-10.1); CHLORIDE 104 MEQ/L (98-107); CREATININE 0.99 MG/DL (0.60-1.30); GLOMERULAR FILTRATION RATE 75 ML/MIN (>89); GLUCOSE,RANDOM 136 MG/DL (74-106); MAGNESIUM 2.1 MG/DL (1.5-2.5); PHOSPHORUS 1.7 MG/DL (2.5-4.9); SODIUM (NA) 136 MEQ/L (136-145)
[2017-05-04 06:48] LABS: ALKALINE PHOSPHATASE 83 U/L (45-117); TOTAL BILIRUBIN ADULT 0.4 MG/DL (0.2-1.0); TOTAL PROTEIN 5.7 GM/DL (6.4-8.2)
[2017-05-04] MEDS: LISINOPRIL 20 MG TAB PO SCH (08:14)
[2017-05-04] MEDS: metroNIDAZOLE 500 MG TAB PO SCH (08:14)
[2017-05-04] MEDS: HYDROCHLOROTHIAZIDE 25 MG TAB PO SCH (08:14)
--- NOTE | 2017-05-04 08:20 | HHI.PR ---
Subjective Remarks This is a pleasant 66 y/o male with DM II, Hypertension, brought in to ER with AMS, found with Hypoglycemia Seen in his bedroom, he had some low grade fever, found with C Diff positive, started on Flagyl by mouth every 8 hours, Hypokalemia in 3.4 replaced and following, his Leukocytosis is coming down from 36.2 to 26.8 Hemoglobin 8.9 from 9.3 probable dilutional. 05/04: Seen in his bedroom improving condition, Leukocytosis improved, patient without nausea, vomit or diarrhea he wants to go home, given antibiotics for 10 more days, and will follow by PCP in 2 to 3 days. Objective Vital Signs Date Time Temp Pulse Resp B/P (MAP) Pulse Ox O2 Delivery O2 Flow Rate FiO2 05/04/17 06:00 101 05/04/17 05:00 100 05/04/17 04:00 105 05/04/17 03:54 99.2 107 16 126/71 (89) 94 05/04/17 03:00 96 05/04/17 02:00 98 05/04/17 01:00 98 05/04/17 00:00 97 05/03/17 23:30 98.6 99 18 113/63 (80) 95 05/03/17 23:00 96 05/03/17 22:00 96 05/03/17 21:00 104 05/03/17 20:42 98.8 95 18 114/60 (78) 95 05/03/17 20:00 101 05/03/17 18:00 118 05/03/17 17:08 100.0 18 108/51 (70) 96 05/03/17 17:00 104 05/03/17 16:00 103 05/03/17 15:00 100 05/03/17 14:00 106 05/03/17 13:00 100 05/03/17 13:00 104 05/03/17 12:00 100.0 96 18 100/56 (71) 96 05/03/17 12:00 102 05/03/17 11:00 96 05/03/17 10:00 118 05/03/17 09:00 102 05/03/17 08:30 99.2 100 18 120/60 (80) 96 I/O 05/03/17 05/03/17 05/03/17 05/04/1705/04/18 3/15/18 07:00 15:00 23:00 07:00 15:00 23:00 Intake Total 360 ml 1200 ml Output Total 200 ml Balance 160 ml 1200 ml Intake Oral 360 ml 1200 ml Output Urine Total 200 ml # Voids 3 # Bowel Movements 1 Result Diagram: 05/04/17 0557 05/04/17 0557 Imaging Last Impressions Head CT 05/02/17 0000 Signed Impressions: Service Date/Time: Tuesday, May 02, 2017 16:00 - CONCLUSION: 1. No acute intracranial abnormality. 2. Left maxillary sinus fluid which may reflect sinusitis. Rayo Wahl MD Procedures None Other Results Laboratory Tests Test 05/03/17 03:04 05/03/17 05:06 05/04/17 05:57 Stool C. difficile Toxin (PCR) POSITIVE Stl C. difficile Toxin Epiderm 027 PRESUMPTIVE NEGATIVE Protein Corrected Calcium 7.9 MG/DL Lipase 398 U/L White Blood Count 10.1 TH/MM3 Red Blood Count 3.64 MIL/MM3 Hemoglobin 11.2 GM/DL Hematocrit 32.5 % Mean Corpuscular Volume 89.5 FL Mean Corpuscular Hemoglobin 30.8 PG Mean Corpuscular Hemoglobin Concent 34.4 % Red Cell Distribution Width 13.7 % Platelet Count 251 TH/MM3 Mean Platelet Volume 7.2 FL Neutrophils (%) (Auto) 78.6 % Lymphocytes (%) (Auto) 9.2 % Monocytes (%) (Auto) 9.9 % Eosinophils (%) (Auto) 1.8 % Basophils (%) (Auto) 0.5 % Neutrophils # (Auto) 8.0 TH/MM3 Lymphocytes # (Auto) 0.9 TH/MM3 Monocytes # (Auto) 1.0 TH/MM3 Eosinophils # (Auto) 0.2 TH/MM3 Basophils # (Auto) 0.1 TH/MM3 CBC Comment DIFF FINAL Differential Comment Blood Urea Nitrogen 21 MG/DL Creatinine 0.99 MG/DL Random Glucose 136 MG/DL Total Protein 5.7 GM/DL Albumin 2.6 GM/DL Calcium Level 7.6 MG/DL Phosphorus Level 1.7 MG/DL Magnesium Level 2.1 MG/DL Alkaline Phosphatase 83 U/L Aspartate Amino Transf (AST/SGOT) 26 U/L Alanine Aminotransferase (ALT/SGPT) 59 U/L Total Bilirubin 0.4 MG/DL Sodium Level 136 MEQ/L Potassium Level 3.8 MEQ/L Chloride Level 104 MEQ/L Carbon Dioxide Level 21.5 MEQ/L Anion Gap 11 MEQ/L Estimat Glomerular Filtration Rate 75 ML/MIN Objective Remarks GENERAL: Obese patient in no acute distress. SKIN: No rashes, ecchymoses or lesions. Cool and dry. HEAD: Atraumatic. Normocephalic. No temporal or scalp tenderness. EYES: Pupils equal round and reactive. Extraocular motions intact. ENT: Nose without bleeding, purulent drainage or septal hematoma. NECK: Trachea midline. No JVD or lymphadenopathy. Supple, nontender, no meningeal signs. CARDIOVASCULAR: Regular rate and rhythm without murmurs, gallops, or rubs. RESPIRATORY: Clear to auscultation. Breath sounds equal bilateral. GASTROINTESTINAL: Abdomen soft, non-tender, nondistended. MUSCULOSKELETAL: Extremities without clubbing, cyanosis, or edema. NEUROLOGICAL: Awake and alert. Cranial nerves II through XII intact. Medications and IVs Current Medications Medications (Trade) Dose Ordered Sig/Hubert Route Start Time Stop Time Status Last Admin (Norvasc) 10 mg DAILY PO 05/03/17 09:00 Future hold 05/03/17 08:16 (Hydrodiuril) 25 mg DAILY PO 05/03/17 09:00 05/04/17 08:14 (Prinivil) 20 mg DAILY PO 05/03/17 09:00 05/04/17 08:14 (Hytrin) 5 mg HS PO 05/02/17 21:00 05/03/17 20:47 (Zofran Inj) 4 mg Q8HR PRN IV PUSH 05/02/17 22:00 (Flagyl) 500 mg Q8H PO 05/03/17 08:00 05/04/17 08:14 Dextrose/Sodium Chloride 1,000 ml @ 125 mls/hr Q8H IV 05/03/17 08:45 05/03/17 21:14 A/P Assessment and Plan - acute encephalopathy due to hypoglycemia; Improved His blood sugar has increased he is eating without difficulty, I will continue to hold as outpatient his anti Hyperglycemic medicines and re start once his blood sugar is seen stable and trending high , he has to be sure he is eating well. given new scripts with this new recommendations. -hypertension; controlled. -leukocytosis- Improved. -elevated LFT's- will monitor; Improved. -elevated lipase; patient with no abdominal pain- clinically no evidence of pancreatitis- Improving. -Obesity strongly recommended diet and exercise. -C Diff colitis to continue Flagyl 500 mg PO TID for 10 more days. no diarrhea. -DVT prophylaxis with subq Lovenox Discussed Condition With patient and relative in the room Discharge Planning Discharge home and follow with PCP in two to three days. Kai Thomas MD May 04, 2017 08:20
[2017-05-04] MEDS ORDERED: POTASSIUM PHOSPHATE INJ 21 MMOL in SODIUM CHLORIDE 0.9% INJ 150 ML IV ONE (10:00)
[2017-05-04] MEDS ORDERED: SITA1TAB2 PO (10:28)
[2017-05-04] MEDS ORDERED: GLIM4TAB PO (10:28)
[2017-05-04] MEDS ORDERED: METR-1 PO (10:28)
--- NOTE | 2017-05-04 10:29 | HHI.FF ---
Face to Face Verification Diagnosis: (1) Side effect of medication (2) Hypoglycemia associated with type 2 diabetes mellitus (3) C. difficile colitis Home Health Nursing Order: Medical education Signs/symptoms of disease process Diabetic education Medication education-adverse effect Nursing assessment with vital signs I have seen patient Mindy Vera on 05/04/17. My clinical findings support the need for the requested home health care services because: Ltd mobility - disease progression I certify that my clinical findings support that this patient is homebound because: Unsafe to leave home unassisted Kai Thomas MD May 04, 2017 10:29
--- NOTE | 2017-05-04 14:20 | HHI.DS ---
Discharge Summary Admission Date May 02, 2017 at 17:54 Discharge Date: May 04, 2017 Admitting Diagnosis hypogylcemia, side effect of medication (1) Hypoglycemia associated with type 2 diabetes mellitus ICD Code: E11.649 - Type 2 diabetes mellitus with hypoglycemia without coma Diagnosis: Principal Status: Acute (2) C. difficile colitis ICD Code: A04.72 - Enterocolitis due to Clostridium difficile, not specified as recurrent Diagnosis: Principal (3) Gastroenteritis ICD Code: K52.9 - Noninfective gastroenteritis and colitis, unspecified Diagnosis: Principal Status: Acute Procedures None Brief History - From Admission patient is a 66 y/o male with history of diabetes mellitus, hypertension who presented to ER after he got confused earlier today. he says that he's had some diarrhea over the past two days but with no abdominal pain, nausea,fever or chills. he says that he had his glucometer but didn't have test strips and couldn't check his blood sugar. he was just started on his new regimen of oral hypoglycemics two months ago; he uses to take metformin in the past. apparently he was confused earlier today -he was found to have a blood sugar of 31 at the time of presentation. he was awake and fully oriented at the time of my evaluation. CBC/BMP: 05/04/17 0557 05/04/17 0557 Significant Findings Laboratory Tests Test 05/02/17 11:15 05/03/17 03:04 05/03/17 05:06 05/04/17 05:57 White Blood Count 18.1 TH/MM3 (4.0-11.0) 12.2 TH/MM3 (4.0-11.0) Red Blood Count 4.09 MIL/MM3 (4.50-5.90) 3.65 MIL/MM3 (4.50-5.90) 3.64 MIL/MM3 (4.50-5.90) Hematocrit 37.2 % (39.0-51.0) 32.8 % (39.0-51.0) 32.5 % (39.0-51.0) Neutrophils (%) (Auto) 85.3 % (16.0-70.0) 79.5 % (16.0-70.0) 78.6 % (16.0-70.0) Lymphocytes (%) (Auto) 3.6 % (9.0-44.0) 5.8 % (9.0-44.0) Monocytes (%) (Auto) 11.0 % (0.0-8.0) 13.5 % (0.0-8.0) 9.9 % (0.0-8.0) Neutrophils # (Auto) 15.4 TH/MM3 (1.8-7.7) 9.7 TH/MM3 (1.8-7.7) 8.0 TH/MM3 (1.8-7.7) Lymphocytes # (Auto) 0.7 TH/MM3 (1.0-4.8) 0.7 TH/MM3 (1.0-4.8) 0.9 TH/MM3 (1.0-4.8) Monocytes # (Auto) 2.0 TH/MM3 (0-0.9) 1.6 TH/MM3 (0-0.9) 1.0 TH/MM3 (0-0.9) Blood Urea Nitrogen 26 MG/DL (7-18) 27 MG/DL (7-18) 21 MG/DL (7-18) Random Glucose 31 MG/DL (74-106) 113 MG/DL (74-106) 136 MG/DL (74-106) Calcium Level 7.8 MG/DL (8.5-10.1) 7.2 MG/DL (8.5-10.1) 7.6 MG/DL (8.5-10.1) Alkaline Phosphatase 145 U/L (45-117) Aspartate Amino Transf (AST/SGOT) 73 U/L (15-37) Alanine Aminotransferase (ALT/SGPT) 97 U/L (12-78) Sodium Level 132 MEQ/L (136-145) 134 MEQ/L (136-145) Carbon Dioxide Level 20.9 MEQ/L (21.0-32.0) Estimat Glomerular Filtration Rate 63 ML/MIN (>89) 55 ML/MIN (>89) 75 ML/MIN (>89) Lipase 1005 U/L (73-393) 398 U/L (73-393) Stool C. difficile Toxin (PCR) POSITIVE (NEGATIVE) Hemoglobin 11.1 GM/DL (13.0-17.0) 11.2 GM/DL (13.0-17.0) Creatinine 1.31 MG/DL (0.60-1.30) Total Protein 5.8 GM/DL (6.4-8.2) 5.7 GM/DL (6.4-8.2) Albumin 2.7 GM/DL (3.4-5.0) 2.6 GM/DL (3.4-5.0) Protein Corrected Calcium 7.9 MG/DL (8.5-10.1) Phosphorus Level 1.7 MG/DL (2.5-4.9) Imaging Last Impressions Head CT 05/02/17 0000 Signed Impressions: Service Date/Time: Tuesday, May 02, 2017 16:00 - CONCLUSION: 1. No acute intracranial abnormality. 2. Left maxillary sinus fluid which may reflect sinusitis. Rayo Wahl MD PE at Discharge GENERAL: Obese patient in no acute distress. SKIN: No rashes, ecchymoses or lesions. Cool and dry. HEAD: Atraumatic. Normocephalic. No temporal or scalp tenderness. EYES: Pupils equal round and reactive. Extraocular motions intact. ENT: Nose without bleeding, purulent drainage or septal hematoma. NECK: Trachea midline. No JVD or lymphadenopathy. Supple, nontender, no meningeal signs. CARDIOVASCULAR: Regular rate and rhythm without murmurs, gallops, or rubs. RESPIRATORY: Clear to auscultation. Breath sounds equal bilateral. GASTROINTESTINAL: Abdomen soft, non-tender, nondistended. MUSCULOSKELETAL: Extremities without clubbing, cyanosis, or edema. NEUROLOGICAL: Awake and alert. Cranial nerves II through XII intact. Hospital Course This is a pleasant 66 y/o male with DM II, Hypertension, brought in to ER with AMS, found with Hypoglycemia Seen in his bedroom, he had some low grade fever, found with C Diff positive, started on Flagyl by mouth every 8 hours, Hypokalemia in 3.4 replaced and following, his Leukocytosis is coming down from 36.2 to 26.8 Hemoglobin 8.9 from 9.3 probable dilutional. 05/04: Seen in his bedroom improving condition, Leukocytosis improved, patient without nausea, vomit or diarrhea he wants to go home, given antibiotics for 10 more days, and will follow by PCP in 2 to 3 days. Assessment and Plan - acute encephalopathy due to hypoglycemia; Improved His blood sugar has increased he is eating without difficulty, I will continue to hold as outpatient his anti Hyperglycemic medicines and re start once his blood sugar is seen stable and trending high , he has to be sure he is eating well. given new scripts with this new recommendations. -hypertension; controlled. -leukocytosis- Improved. -elevated LFT's- will monitor; Improved. -elevated lipase; patient with no abdominal pain- clinically no evidence of pancreatitis- Improving. -Obesity strongly recommended diet and exercise. -C Diff colitis to continue Flagyl 500 mg PO TID for 10 more days. no diarrhea. -DVT prophylaxis with subq Lovenox Discussed Condition With patient and relative in the room Discharge Planning Discharge home and follow with PCP in two to three days. Pt Condition on Discharge: Good Discharge Disposition: Disch w/ Home Health Serv Discharge Time: <= 30 minutes Discharge Instructions DIET: Follow Instructions for: Heart Healthy Diet, Diabetic Diet Activities you can perform: Regular-No Restrictions Kai Thomas MD May 04, 2017 14:20
== END 2017-05-04 16:18 | disposition home health service (06) | DRG 637 ==
LOC: NEPC 10:02 → NEDA 12:52 → NEDH 17:09 → OBSVTOIN 17:54 → HCIN 22:40
PROVIDERS: ADMIT Internal Medicine; ATTEND Internal Medicine
DX: E11.649 Type 2 diabetes mellitus with hypoglycemia without coma (principal); G93.49 Other encephalopathy; A04.72 Enterocolitis due to Clostridium difficile, not specified as recurrent; I95.9 Hypotension, unspecified; E87.1 Hypo-osmolality and hyponatremia; I10 Essential (primary) hypertension; E78.5 Hyperlipidemia, unspecified; E86.0 Dehydration; N28.9 Disorder of kidney and ureter, unspecified; E87.6 Hypokalemia; E66.9 Obesity, unspecified; Z68.31 Body mass index [BMI] 31.0-31.9, adult; Z79.84 Long term (current) use of oral hypoglycemic drugs
CPT/HCPCS: 70450; 80053; 82948; 83690; 83735; 84100; 85025; 87493; 87506; 87804; 96361; 96374; J2405; J7030; J7042